=== PATIENT | female | born 1945 | race Caucasian/White ===

== ENCOUNTER 2020-03-30 15:52 | Emergency (ER) | payer SELFPAY ==
[2020-03-30 16:09] VITALS: BP 143/61; PULSE 95; TEMP 99.1; BMI 33.0
[2020-03-30] MEDS ORDERED: DIPHTH,PERTUSS(ACELL),TET 0.5 ML DISP.SYRIN IM ONE ×2 (16:38→16:52)
--- NOTE | 2020-03-30 16:42 | PDOC ---
History of Present Illness - General Chief Complaint: Laceration Stated Complaint: FINGER INJURY/LACERATION Time Seen by Provider: 03/30/20 16:17 History Source: Patient Exam Limitations: Clinical Condition - History of Present Illness Initial Comments: 03/30/20 16:39 Patient with a history of diabetes and hyperlipidemia presented with complaint of laceration to tip of right index finger status post accidentally cutting finger with a kitchen knife while cooking today. Patient does not recall last tetanus vaccine. Denies difficulty moving fingers. Denies numbness or tingling sensation to fingers. Denies any other symptoms Timing/Duration: reports: just prior to arrival Past History - Medical History Allergies/Adverse Reactions: Allergies Allergy/AdvReac Type Severity Reaction Status Date / Time No Known Allergies Allergy Verified 03/30/20 16:05 Home Medications: Ambulatory Orders Amox-Tr/K Cl [Augmentin - 875Mg Tablet] 1 tab PO BID #14 tablet 03/30/20 Ibuprofen 600 mg PO Q8H PRN #16 tablet 03/30/20 COPD: No - Immunization History Immunization Up to Date: No - Psycho-Social/Smoking History Smoking History: Never smoked - Substance Abuse Hx (Audit-C & DAST Scrn) How often the patient has a drink containing alcohol: Never Score: In Men: 4 or > Positive; In Women: 3 or > Positive: 0 Screen Result (Pos requires Nsg. Audit-10AR): Negative In the last yr the pt used illegal drug/Rx for NonMed reason: No Score: Yes response is considered Positive: 0 Screen Result (Positive result requires Nsg. DAST-10): Negative Review of Systems - Review of Systems Able to Perform ROS?: Yes Is the patient limited Croatian proficient: No Constitutional: No: Chills, Fever, Malaise HEENTM: No: Symptoms Reported Respiratory: No: Symptoms reported, See HPI, Cough, Orthopnea, Shortness of Breath, SOB with Exertion, SOB at Rest, Stridor, Wheezing, Productive cough, Hemoptysis, Other Cardiac (ROS): No: Symptoms Reported, See HPI, Chest Pain, Edema, Irregular Heart Rate, Lightheadedness, Palpitations, Syncope, Chest Tightness, Other ABD/GI: No: Symptoms Reported Musculoskeletal: Yes: Symptoms Reported, See HPI, Muscle Pain (distal left index finger pain) Integumentary: Yes: Symptoms Reported, See HPI, Other (laceration to left index finger) Neurological: No: Symptoms reported, Numbness, Paresthesia, Tingling All Other Systems: Reviewed and Negative *Physical Exam - Vital Signs Last Vital Signs Temp Pulse Resp BP Pulse Ox 99.1 F 95 H 18 143/61 100 03/30/20 16:06 03/30/20 16:06 03/30/20 16:06 03/30/20 16:06 03/30/20 16:06 - Physical Exam 03/30/20 16:40 GENERAL: Well developed, well nourished. Awake and alert. No acute distress. PULMONARY: No evidence of respiratory distress. Lungs clear to auscultation bilaterally. No wheezing, rales or rhonchi. MUSCULOSKELETAL : mild tenderness over distal phalange of left index finger over laceration area. Full range of motion left index finger. Normal strength left index finger. No bony deformities SKIN: Warm and dry. Normal capillary refill. 2 cm linear deep laceration to plantar aspect of distal phalange of left index finger with minimal bleeding. Normal sensory to finger. Full range of motion of the left index finger. NEUROLOGICAL: Alert, awake, appropriate. No motor deficits in the lower extremities. Gait is normal without ataxia. PSYCHIATRIC: Cooperative. Good eye contact. Appropriate mood and affect. General Appearance: Yes: Nourished, Appropriately Dressed. No: Apparent Distress Procedures - Laceration/Wound Repair Left Anterior Distal Plantar Finger 2nd digit Wound Length: to 2.5 cm Wound Explored: clean Wound's Depth, Shape: superficial, linear Irrigated w/ Saline: Yes Betadine Prep: Yes Anesthesia: 1% Lidocaine Amount of Anesthetic (ccs): 2 Wound Repaired With: Sutures Suture Size/Type: 5:0, nylon Number of Sutures: 6 Layer Closure: No Sterile Dressing Applied: Yes Splint Applied: No Sling Applied: No Progress: 03/30/20 17:17 Wound cleaned with Betadine and irrigated with normal saline. Wound anesthetized with 1.5 cc 1% lidocaine. Wound closed with 6 interrupted 5-0 nylon sutures with close approximation. Hemostasis achieved. Bacitracin applied to wound and wound covered with adhesive bandage. Left index finger covered with stretch tubular finger gauze to help protect finger with good padding. Patient tolerated procedure well Medical Decision Making - Medical Decision Making 03/30/20 16:39 Patient with a history of diabetes and hyperlipidemia presented with complaint of laceration to tip of right index finger status post accidentally cutting finger with a kitchen knife while cooking today. Patient does not recall last tetanus vaccine. Denies difficulty moving fingers. Denies numbness or tingling sensation to fingers. Denies any other symptoms Exam significant for 2 cm linear deep laceration to plantar aspect of distal phalange of left index finger with minimal bleeding. Normal sensory to finger. Full range of motion of the left index finger. Normal strength left index finger. Wound cleaned with Betadine and irrigated with normal saline. Wound anesthetized with 1.5 cc 1% lidocaine. Wound closed with 6 interrupted 5-0 nylon sutures with close approximation. Hemostasis achieved. Bacitracin applied to wound and wound covered with adhesive bandage. Left index finger covered with stretch tubular finger gauze to help protect finger with good padding. Patient tolerated procedure well 03/30/20 17:14 Tetanus vaccine given to nurse. Patient stable for discharge on Augmentin antibiotic for infection prophylaxis and Motrin PRN for pain. Patient advised on continues home wound care and follow-up in 1 week for suture removal. Patient voiced understanding OF follow-up instructions and patient left department without complication Discharge - Discharge Information Problems reviewed: Yes Clinical Impression/Diagnosis: Laceration of left index finger w/o foreign body w/o damage to nail Qualifiers: Encounter type: initial encounter Qualified Code(s): S61.211A - Laceration without foreign body of left index finger without damage to nail, initial encounter Condition: Stable Disposition: HOME - Admission No - Additional Discharge Information Prescriptions: Amox-Tr/K Cl [Augmentin - 875Mg Tablet] 1 tab PO BID #14 tablet Ibuprofen 600 mg PO Q8H PRN #16 tablet PRN Reason: pain - Follow up/Referral - Patient Discharge Instructions Patient Printed Discharge Instructions: DI for Laceration Repair Additional Instructions: Keep wound clean and dry for the next 24 hours. Apply bacitracin or Neosporin to wound twice a day. Take prescribed antibiotics and finish it and take prescribed Motrin as needed for pain. Follow-up in 1 week for suture removal. No scrubbing the wound site for the next 4 days. Let water run on the wound when showering and dab dry. Come back to the emergency room or your primary care earlier if redness to wound site or drainage from wound site for evaluation Rjaani jeffries y seca gunner las prximas 24 horas. Aplique bacitracina o Neosporin a la herida dos veces al da. [place] los antibiticos recetados y termnelos y tome Motrin recetado segn sea necesario para el dolor. Seguimiento en 1 semana para retirar la sutura. No frote el sitio de la herida gunner los prximos 4 jiang. Deje correr agua sobre la herida al ducharse y squela. Regrese a la dali de emergencias o a umana atencin primaria antes si hay enrojecimiento en el sitio de la herida o supuracin del sitio de la herida para umana evaluacin - Post Discharge Activity
== END 2020-03-30 17:10 | disposition home or self-care (01) ==
LOC: JERFT 15:52
PROC: 0HQFXZZ Repair Right Hand Skin, External Approach (ICD-10-PCS; principal; 2020-03-30)
PROC: 3E0234Z Introduction of Serum, Toxoid and Vaccine into Muscle, Percutaneous Approach (ICD-10-PCS; 2020-03-30)
DX: S61.211A Laceration without foreign body of left index finger without damage to nail, initial encounter (principal)
CPT/HCPCS: 90715; 99284-25